=== PATIENT | female | born 1980 | race Caucasian/White ===

== ENCOUNTER 2018-04-12 13:08 | Emergency (ER) | payer BC ==
[~2018-04-12] VITALS: Ht 165.1 cm; Wt 95.8 kg
[2018-04-12 13:13] VITALS: BP 156/89; Ht 165.1 cm; Wt 95.8 kg
[2018-04-12 14:35] LABS: PLATELET COUNT 366 x10^3mcL (130-400); RED CELL DISTRIBUTION WIDTH 14.6 % (11.5-14.5)
[2018-04-12 14:35] LABS: UA SPECIFIC GRAVITY <=1.005 (1.005-1.035); microscopic required? YES; urine erythrocyte 3+ (NEGATIVE)
== END 2018-04-12 16:29 | disposition home or self-care (01) ==
LOC: ED 13:08
PROVIDERS: Emergency Medicine
DX: O20.0 Threatened abortion (principal); I10 Essential (primary) hypertension
CPT/HCPCS: 36415